=== PATIENT | male | born 1965 | race Caucasian/White ===

== ENCOUNTER 2018-11-16 09:49 | Day surgery (SDC) | payer BC ==
[2018-11-15 11:10] VITALS: BMI 28.7
--- NOTE | 2018-11-15 13:40 | HP ---
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 It has been bothersome to him. He desires repair. He has also noticed in the past 3 to 4 weeks of discomfort in his left groin. He has not noted a mass. He notices a pulling sensation. On exam, he is noted to have an equivocal inguinal hernia. Plan is robotic mesh repair of his umbilical hernia and repair of his left inguinal hernia with mesh if deemed necessary based on intraoperative findings. ANESTHESIA: General. ALLERGIES: NONE. SOCIAL HISTORY: Tobacco, none. He did dip in the past, but has quit. Alcohol, socially. The patient is . PAST SURGICAL HISTORY: ACL and arthroscopies of knee in the past and ORIF of wrist, right. PAST MEDICAL HISTORY: Noncontributory. REVIEW OF SYSTEMS: Noncontributory. PHYSICAL EXAMINATION: VITAL SIGNS: Weight 210 pounds, height 69 inches. Blood pressure 127/70, pulse 63, and temperature 98.6 degrees. HEAD, EARS, EYES, NOSE, AND THROAT: Unremarkable. LUNGS: Clear to auscultation. CARDIAC: Regular rate and rhythm without murmur or gallop. ABDOMEN: Soft, umbilical hernia, slightly tender incompletely reducible. Abdomen soft nontender, without masses, otherwise. GENITOURINARY: On standing exam and Valsalva, testicles are normal. Right groin without hernia. Left groin equivocal. Left inguinal hernia on Valsalva, tender to palpation external ring. EXTREMITIES: No ankle edema. SKIN: Normal, sclerae nonicteric, skin nonjaundiced. LYMPH: No lymphadenopathy neck, axilla, or groin. ASSESSMENT AND PLAN: 1. Umbilical hernia. Plan, mesh repair robotically as outpatient. 2. Left groin pain and tenderness to equivocal exam. We will plan robotic evaluation and hernia repair with mesh if indicated. He understands the risks and benefits and consents. Job ID: [id number]
[2018-11-16] MEDS ORDERED: Ketorolac Tromethamine 30 MG/ML VIAL ONE (10:17)
[2018-11-16] MEDS ORDERED: Midazolam HCl 2 mg/2 ml Vial ONE (10:17)
[2018-11-16] MEDS ORDERED: Bupivacaine HCl 0.5%/Epinephrine 1:200,000/PF 30 ml Vial ONE (10:27)
[2018-11-16] MEDS ORDERED: Fentanyl 250 MCG/5 ML VIAL ONE (10:39)
[2018-11-16 11:02] LABS: #Eosinphils 0.1 thou/uL (0.0-0.7); #Lymphocytes 2.4 thou/uL (1.20-3.40); #Monocytes 0.4 thou/uL (0.11-0.59); #Neutrophils 3.3 thou/uL (1.40-6.50); %Basophils 0.3 % (0.0-1.0); %Eosinophils 1.9 % (0.0-10.0); %Lymphocytes 38.6 % (21.0-51.0); %Monocytes 6.3 % (0.0-10.0); %Neutrophils 52.9 % (42.0-75.0); Hemoglobin 13.9 g/dL (14.0-18.0); Mean Corpuscular Hemoglobin 28.8 pg (27.0-31.0); Mean Corpuscular Volume 87.2 fL (78.0-98.0); Mean Platelet Volume 6.5 fL (7.4-10.4); Platelet Count 276 thou/uL (130-400); RBC Distribution Width 10.9 % (11.5-14.5); Red Blood Cell (RBC) Count 4.83 mill/uL (4.70-6.10); White Blood Cell (WBC) Count 6.2 thou/uL (4.8-10.8)
[2018-11-16 11:15] LABS: Anion Gap 10 mmol/L (10-20); BUN (Urea Nitrogen) 15 mg/dL (8.4-25.7); Calc. Creatinine Clearance 150 mL/min (70-130); Carbon Dioxide 26 mmol/L (22-29); Chloride 106 mmol/L (98-107); Estimated GFR-MDRD Greater than 90; Glucose 88 mg/dL (70-105); Potassium 4.1 mmol/L (3.5-5.1); Sodium 138 mmol/L (136-145)
[2018-11-16] MEDS ORDERED: HYDROcodone/Acetaminophen 5/325 mg Tablet ONE (14:09)
[2018-11-16] MEDS ORDERED: Metoclopramide HCl 10 MG/2 ML VIAL ONE (14:54)
[2018-11-16] MEDS ORDERED: ePHEDrine 50 MG/ML VIAL ONE (14:54)
[2018-11-16] MEDS ORDERED: Rocuronium Bromide 10 MG/ML (10ML VIAL) ONE ×2 (14:54)
[2018-11-16] MEDS ORDERED: Lidocaine 1% PF 5 ML VIAL ONE (14:54)
[2018-11-16] MEDS ORDERED: PROPOFOL 200 MG/20 ML VIAL ONE (14:54)
[2018-11-16] MEDS ORDERED: PHENYLEPHRINE-NS 100 MCG/ML 10 ML SYRINGE ONE (14:54)
[2018-11-16] MEDS ORDERED: Glycopyrrolate 0.2 MG/ML 5 ML SYRINGE ONE (14:54)
[2018-11-16] MEDS ORDERED: Ondansetron PF 4 MG/2 ML Vial ONE (14:54)
--- NOTE | 2018-11-16 16:08 | OP ---
DATE OF PROCEDURE: 11/16/2018 PREOPERATIVE DIAGNOSIS: Umbilical hernia, painful. POSTOPERATIVE DIAGNOSIS: Umbilical hernia, painful without evidence of inguinal hernia. PROCEDURE PERFORMED: Robotic laparoscopic repair of umbilical hernia with 4.5 inch circular mesh Ventralight reinforcement of primary fascial closure. ANESTHESIA: General, local 0.5% Marcaine with epinephrine of 30 mL. DESCRIPTION OF PROCEDURE: The patient was taken to the operating room, where general anesthesia was clipped of hair, prepared with ChloraPrep and draped in routine fashion. Singleton catheter placed at the beginning of the procedure and removed at the end for inspection of the groins. The patient had had some pulling sensation in his left scrotum, but clinically I could not detect an inguinal hernia on exam. I re-examined him the morning of surgery and could not appreciate any inguinal hernia on either side. The patient's left groin symptoms had improved. Local anesthetic was infiltrated in the skin and subcutaneous tissue about each port site. Left subxiphoid incision was made. Pneumoperitoneum to 15 mmHg obtained with a Veress needle, replaced with an 11 mm balloon port. Laparoscope inserted and bilateral far lateral subcostal incision was made, an 8 mm port was placed. A robot was docked, connected and instruments inserted along with scope and robotic hernia repair was undertaken. Falciform ligament and fatty tissue cleared from around the umbilicus to accommodate the mesh. The fascial defect closed with continuous sutures to and fro of #1 V-Loc. Once this was completed with pneumoperitoneum reduced to 10 mmHg. The mesh was secured circumferentially with 2-0 V-Loc suture. Good hernia repair was undertaken. Groins inspected, noting absence of any significant inguinal hernias. Good hemostasis noted. Pneumoperitoneum reduced. All instruments removed and the subxiphoid fascia approximately 0 Vicryl UR needle. Skin approximated with continuous suture of 4-0 Monocryl. [place] glue applied. Job ID: [id number]
--- NOTE | 2018-11-16 17:12 | EKG ---
Test Reason : PREOP Blood Pressure : / mmHG Vent. Rate : 056 BPM Atrial Rate : 056 BPM P-R Int : 150 ms QRS Dur : 108 ms QT Int : 448 ms P-R-T Axes : 019 012 005 degrees QTc Int : 432 ms Sinus bradycardia Non-specific intra-ventricular conduction delay Abnormal ECG Confirmed by KATHERINE LUND ([id number]) on 11/16/2018 5:11:57 PM Referred By: DAVID Confirmed By:KATHERINE LUND
== END 2018-11-16 14:29 | disposition home or self-care (01) ==
LOC: SDC 09:49
PROVIDERS: ATTEND Specialist
PROC: 0WUF4JZ Supplement Abdominal Wall with Synthetic Substitute, Percutaneous Endoscopic Approach (ICD-10-PCS; principal; 2018-11-16)
DX: K42.9 Umbilical hernia without obstruction or gangrene (principal); Z87.891 Personal history of nicotine dependence; Z88.8 Allergy status to other drugs, medicaments and biological substances
CPT/HCPCS: 36415; 80048; 85025; 93005; 93010; C1781; J0131; J0670; J1885; J2001; J2250; J2405; J2704; J2765; J3010; J3490